=== PATIENT | male | born 1955 | race African-American/Black ===

== ENCOUNTER 2022-02-14 18:15 | Emergency (ER) | payer BC, MEDICAID ==
[~2022-02-14] VITALS: Ht 185.4 cm; Wt 118.0 kg
[2022-02-14 18:31] VITALS: BP 155/95
[2022-02-14] MEDS ORDERED: ASPI-1153 PO (18:35)
== END 2022-02-15 02:30 | disposition left against medical advice (07) ==
LOC: ER 18:15
DX: Z53.21 Procedure and treatment not carried out due to patient leaving prior to being seen by health care provider (principal)

== ENCOUNTER 2022-02-28 15:45 | Emergency (ER) | payer MEDICARE, MEDICAID ==
[~2022-02-28] VITALS: Ht 185.4 cm; Wt 109.0 kg
[~2022-02-28 15:45] MED LIST: ASPI-1153 PO
[2022-02-28 19:06] LABS: HEMATOCRIT. 47.2 % (42.0-52.0); HEMOGLOBIN. 15.6 g/dL (14.0-18.0); MEAN CORPUSCULAR HEMOGLOBIN 30.7 pg (28.0-32.0); MEAN CORPUSCULAR VOLUME 92.9 fL (80.0-94.0); PLATELET 315 x1000/uL (130-400); RED BLOOD CELL COUNT 5.08 mill/uL (4.7-6.1); RED CELL DISTRIBUTION WIDTH 13.4 % (11.6-14.6)
[2022-02-28 19:12] LABS: CLARITY URINE CLEAR (CLEAR); COLOR URINE YELLOW (YELLOW); KETONES URINE TRACE (NEGATIVE); LEUKOCYTE ESTERASE URINE 1+ (NEGATIVE); NITRITE URINE NEGATIVE (NEGATIVE); OCCULT BLOOD URINE TRACE (NEGATIVE); PROTEIN URINE NEGATIVE (NEGATIVE); SPECIFIC GRAVITY URINE 1.023 (1.005-1.030)
[2022-02-28 19:18] LABS: CHLORIDE 108 mEq/L (98-107)
[2022-02-28] MEDS ORDERED: METRONIDAZOLE 500 MG PREMIX 100 ML IV ONE (21:15)
[2022-02-28] MEDS ORDERED: CEFTRIAXONE 1 G PREMIX 50 ML IV ONE (21:15)
[2022-02-28] MEDS ORDERED: FUROSEMIDE 40MG/4ML VIAL IVP ONE (21:15)
[2022-02-28 23:16] VITALS: BP 141/73
[2022-02-28 23:20] LABS: PLATELET ESTIMATE NORMAL
== END 2022-02-28 23:42 | disposition short-term general hospital (02) ==
LOC: ER 15:45 → CANBEDREQ 03-02 06:46
DX: I11.0 Hypertensive heart disease with heart failure (principal); I50.9 Heart failure, unspecified; N30.90 Cystitis, unspecified without hematuria; N45.3 Epididymo-orchitis; S30.853A Superficial foreign body of scrotum and testes, initial encounter; X58.XXXA Exposure to other specified factors, initial encounter; Y93.89 Activity, other specified; Y92.89 Other specified places as the place of occurrence of the external cause; R00.0 Tachycardia, unspecified; Z20.822 Contact with and (suspected) exposure to COVID-19
CPT/HCPCS: 36415; 71045; 76870; 80053; 81003; 83880; 84484; 85025; 87426; 93005; 93976; 96365; 96367; 96375; 99285; C9803; J0696; J1940; J3490